=== PATIENT | female | born 1950 | race Caucasian/White ===

== ENCOUNTER 2017-01-02 14:20 | Emergency (ER) | payer OTHER, MEDICAID ==
--- NOTE | 2017-01-02 14:55 | EDPHY ---
H & P Stated Complaint: Thinks her BP is low;feels weak since 11am;similiar episode in past HPI/ROS: HPI CHIEF COMPLAINT: Generalized weakness, I feel like I am off balance, lightheadedness HISTORY OF PRESENT ILLNESS: This patient is 66-year-old female significant past medical history for chronic fatigue syndrome, Sjogren's, TIA, presents to the emergency room by private vehicle with feeling lightheaded. She tells me that is not a dizziness sensation no vertigo symptoms she just states that she feels that time she is going to pass out. She denies palpitations, denies chest pain, she does endorse shortness of breath she tells me that she feels like she cannot take a full breath in. She states she decided come to the emergency room as she has been feeling very lightheaded and feels as if she was going to pass out since 11:00 a.m. this morning. She tells me she has had this in the past with low blood pressure. She also tells me that it may be due to her exhaustion. She also tells me she has been very stressed recently. Patient reports to me that she lives in [employer] housing anger having a inspection she has been very stressed about this. She denies neck pain, chest pain or fever recent illness. She also endorses a rash to the right posterior truncal area. She also additionally reports to me that at times when she goes to walk she feels off balance. She tells me it is not 1 direction or the other. She tells me that she feels like she has to hold onto eisenberg at times. Past Medical History: Sjogren's disease, chronic fatigue syndrome, PTSD, anxiety, IBS Past Surgical History: Appendectomy, tubal ligation Social History: Denies daily use drugs alcohol tobacco products, lives locally in [place] Family History: Noncontributory ROS REVIEW OF SYSTEMS: A comprehensive 10 point review of systems is otherwise negative aside from elements mentioned in the history of present illness. Exam Constitutional appears well nontoxic, triage nursing summary reviewed, vital signs reviewed, awake/alert. Vital signs reviewed blood pressure stable. Eyes normal conjunctivae and sclera, EOMI, PERRLA. HENT normal inspection, atraumatic, moist mucus membranes, no epistaxis, neck supple/ no meningismus, no raccoon eyes. Respiratory clear to auscultation bilaterally, normal breath sounds, no respiratory distress, no wheezing. Cardiovascular rate normal, regular rhythm, no murmur, no edema, distal pulses normal. Gastrointestinal soft, non-tender, no rebound, no guarding, normal bowel sounds, no distension, no pulsatile mass. Genitourinary no CVA tenderness. Musculoskeletal no midline vertebral tenderness, full range of motion, no calf swelling, no tenderness of extremities, no meningismus, good pulses, neurovascularly intact. Skin Right Posterior trunk: Vesicular looking rash to the right posterior chest wall. Appears to be shingles. Neurologic no focal neuro deficit normal neurological exam, awake, alert and oriented x 3, AAOx3, moves all 4 extremities equally, motor intact, sensory intact, CN II-XII intact, normal cerebellar, normal vision, normal speech. Psychiatric normal mood/affect. Heme/Lymph/Immune no lymphadenopathy. Differential Diagnosis: Includes but is not limited to in a particular order electrolyte disturbance, infection, dehydration, cardiac arrhythmia, doubt acute coronary syndrome, doubt pulmonary embolism, TIA, CVA Medical Decision Making: Plan for this patient IV establishment, EKG, fluid bolus check basic blood work including electrolytes, troponin and D-dimer. Patient had a two view chest x-ray. Due to her feeling of off balance however she has a completely normal neurological exam here I will perform a CT of her head without contrast to make sure she does not have a bleed versus infarct which I think is unlikely given her normal neurological exam. We will re- evaluate her after IV fluids. Re-evaluation: EKG interpretation by me on record in [facility] system. Impression time of EKG 1522, this is sinus rhythm rate of 72 I do not appreciate acute ischemic changes or signs of cardiac arrhythmia. CT scan of the head w/o contrast. The results of the study are negative for anything acute. Specifically no bleed or infarct. The study was read by Dr. Weiss. I viewed the images myself on the PACS system. The ED x-ray chest two view: Negative for acute cardiopulmonary disease. Image interpreted by myself. 1624: Patient on re-evaluation at this time is resting comfortably in no acute distress. She does feel better after IV fluids. She did ambulate well throughout the emergency room without any ataxia or gait instability. She denies feeling chest pain or shortness of breath or dizziness or lightheadedness. Denies feeling as if she is going to pass out. Her workup here in the emergency room is extensive including a normal CT scan head without contrast, normal x-ray blood work including negative D-dimer negative troponin nonischemic EKG. No signs of cardiac arrhythmia on EKG. Patient tells me she thinks she is just very exhausted and tired. She has been sleeping here in the emergency room. She got IV fluids and is feeling better. No indication this patient is having ACS or acute stroke. Gait normal. Unremarkable neuro exam. No chest pain or shortness of breath. I feel comfortable allowing her to go home. She does understand return precautions emergency room this includes if she develops chest pain, shortness of breath worsening lightheadedness or syncope or dizziness she return emergency room she understands. Of note additional patient has shingles right posterior trunk should be placed on a acyclovir outpatient. Follow up with primary care doctor she understands. Source: Patient - Personal History Current Tetanus Diphtheria and Acellular Pertussis (TDAP): Yes Tetanus Vaccine Date: < 10 YEARS - Medical/Surgical History Hx Asthma: No Hx Chronic Respiratory Disease: No Hx Diabetes: No Hx Cardiac Disease: No Hx Renal Disease: No Hx Cirrhosis: No Hx Alcoholism: No Hx HIV/AIDS: No Hx Splenectomy or Spleen Trauma: No Other PMH: APPY, TUBAL LIG, UTERINE CA, CHRONIC FATIGUE, PTSD, ANXIETY, SLEEP ISSUES,IBS,, hysterectomy - Social History Smoking Status: Former smoker Constitutional: Initial Vital Signs Temperature (C) 36.5 C 01/02/17 14:20 Heart Rate 77 01/02/17 14:20 Respiratory Rate 18 01/02/17 14:20 Blood Pressure 121/82 H 01/02/17 14:20 O2 Sat (%) 96 01/02/17 14:20 O2 Delivery Mode Room Air Allergies/Adverse Reactions: Penicillins Allergy (Severe, Verified 01/02/17 14:25) SWELLING epinephrine Allergy (Verified 01/02/17 14:25) latex Allergy (Verified 01/02/17 14:25) venom-honey bee [bee venom (honey bee)] Allergy (Verified 01/02/17 14:25) EPI Allergy (Unknown, Uncoded 03/07/15 06:28) Home Medications: Medication Instructions Recorded Acyclovir 01/15/10 PARoxetine HCL [Paxil 10mg (*)] 01/15/10 Acyclovir 800 mg PO 5XD #35 tab 01/02/17 Medical Decision Making - Diagnostics Imaging Results: Imaging Impressions Chest X-Ray 01/02/17 15:13 Impression: Stable negative chest. Head CT 01/02/17 15:13 Impression: 1. No significant intracranial abnormality seen. Findings discussed with Sincere Sanon MD at 15:52 hour, 01/02/2017. - Data Points Laboratory Results: Laboratory Results 01/02/17 15:10 01/02/17 15:10 01/02/17 01/02/17 01/02/17 15:46 15:10 15:10 WBC RBC Hgb Hct MCV MCH MCHC RDW Plt Count MPV Neut % (Auto) Lymph % (Auto) [place] % (Auto) Eos % (Auto) Baso % (Auto) Nucleat RBC Rel Count Absolute Neuts (auto) Absolute Lymphs (auto) Absolute Monos (auto) Absolute Eos (auto) Absolute Basos (auto) Absolute Nucleated RBC Immature Gran % Immature Gran # PT 12.2 SEC SEC (12.0-15.0) INR 0.91 (0.83-1.16) APTT 26.4 SEC SEC (23.0-38.0) D-Dimer < 0.27 ug/mLFEU ug/mLFEU (0.00-0.50) Sodium 142 mEq/L mEq/L (134-144) Potassium 4.0 mEq/L mEq/L (3.5-5.2) Chloride 102 mEq/L mEq/L (97-110) Carbon Dioxide 28 mEq/l mEq/l (22-31) Anion Gap 12 mEq/L mEq/L (8-16) BUN 23 mg/dL mg/dL (7-23) Creatinine 1.0 mg/dL mg/dL (0.6-1.0) Estimated GFR 55 Glucose 66 mg/dL L mg/dL (70-100) Calcium 9.8 mg/dL mg/dL (8.5-10.4) Magnesium 2.3 mg/dL mg/dL (1.6-2.3) Total Bilirubin 1.4 mg/dL mg/dL (0.1-1.4) Conjugated Bilirubin 0.2 mg/dL mg/dL (0.0-0.5) Unconjugated Bilirubin 1.2 mg/dL H mg/dL (0.0-1.1) AST 29 IU/L IU/L (14-46) ALT 27 IU/L IU/L (9-52) Alkaline Phosphatase 91 IU/L IU/L (38-126) Creatine Kinase 46 IU/L IU/L (0-156) CK-MB (CK-2) Fraction 1.54 ng/mL ng/mL (0-3.19) Troponin I < 0.012 ng/mL ng/mL (0-0.034) NT-Pro-B Natriuret Pep 75 pg/mL pg/mL (0-125) Total Protein 8.5 g/dL H g/dL (6.3-8.2) Albumin 4.8 g/dL g/dL (3.5-5.0) Urine Color YELLOW Urine Appearance CLEAR Urine pH 8.0 H (5.0-7.5) Ur Specific [place] 1.011 (1.002-1.030) Urine Protein NEGATIVE (NEGATIVE) Urine Ketones NEGATIVE (NEGATIVE) Urine Blood NEGATIVE (NEGATIVE) Urine Nitrate NEGATIVE (NEGATIVE) Urine Bilirubin NEGATIVE (NEGATIVE) Urine Urobilinogen NEGATIVE EU EU (0.2-1.0) Ur Leukocyte Esterase NEGATIVE (NEGATIVE) Urine Glucose NEGATIVE (NEGATIVE) 01/02/17 15:10 WBC 6.64 10^3/uL 10^3/uL (3.80-9.50) RBC 4.90 10^6/uL 10^6/uL (4.18-5.33) Hgb 14.9 g/dL g/dL (12.6-16.3) Hct 45.4 % % (38.0-47.0) MCV 92.7 fL fL (81.5-99.8) MCH 30.4 pg pg (27.9-34.1) MCHC 32.8 g/dL g/dL (32.4-36.7) RDW 13.4 % % (11.5-15.2) Plt Count 277 10^3/uL 10^3/uL (150-400) MPV 10.1 fL fL (8.7-11.7) Neut % (Auto) 68.5 % % (39.3-74.2) Lymph % (Auto) 18.5 % % (15.0-45.0) Brown % (Auto) 9.5 % % (4.5-13.0) Eos % (Auto) 1.7 % % (0.6-7.6) Baso % (Auto) 1.5 % % (0.3-1.7) Nucleat RBC Rel Count 0.0 % % (0.0-0.2) Absolute Neuts (auto) 4.55 10^3/uL 10^3/uL (1.70-6.50) Absolute Lymphs (auto) 1.23 10^3/uL 10^3/uL (1.00-3.00) Absolute Monos (auto) 0.63 10^3/uL 10^3/uL (0.30-0.80) Absolute Eos (auto) 0.11 10^3/uL 10^3/uL (0.03-0.40) Absolute Basos (auto) 0.10 10^3/uL 10^3/uL (0.02-0.10) Absolute Nucleated RBC 0.00 10^3/uL 10^3/uL (0-0.01) Immature Gran % 0.3 % % (0.0-1.1) Immature Gran # 0.02 10^3/uL 10^3/uL (0.00-0.10) PT INR APTT D-Dimer Sodium Potassium Chloride Carbon Dioxide Anion Gap BUN Creatinine Estimated GFR Glucose Calcium Magnesium Total Bilirubin Conjugated Bilirubin Unconjugated Bilirubin AST ALT Alkaline Phosphatase Creatine Kinase CK-MB (CK-2) Fraction Troponin I NT-Pro-B Natriuret Pep Total Protein Albumin Urine Color Urine Appearance Urine pH Ur Specific [place] Urine Protein Urine Ketones Urine Blood Urine Nitrate Urine Bilirubin Urine Urobilinogen Ur Leukocyte Esterase Urine Glucose Medications Given: Discontinued Medications Sodium Chloride (Ns) 1,000 mls @ 0 mls/hr IV ONCE ONE PRN Reason: Wide Open Stop: 01/02/17 15:13 Last Admin: 01/02/17 15:15 Dose: 1,000 mls Departure - Departure Disposition: Home, Routine, Self-Care Clinical Impression: Lightheadedness Shingles Qualifiers: Herpes zoster complications: without complications Qualified Code(s): B02.9 - Zoster without complications Condition: Good Instructions: Lightheadedness (ED), Near Syncope (ED), Shingles (ED) Additional Instructions: 1. Drink lots of fluids stay well-hydrated. 2. return emergency room immediately if he developed passing out or you do not feel well or if you have any questions or concerns. Referrals: Cassandra Dobson MD [Primary Care Provider] - As per Instructions Prescriptions: Acyclovir 800 mg PO 5XD #35 tab
[2017-01-02] MEDS ORDERED: NS 1,000 ML IV ONE (15:12)
[2017-01-02 15:19] LABS: % IMMATURE GRANULYOCYTES 0.3 % (0.0-1.1); ABSOLUTE IMMATURE GRANULOCYTES 0.02 10^3/uL (0.00-0.10); ADD DIFF? NO; ADD MORPH? NO; ADD SCAN? NO; ATYPICAL LYMPHOCYTE FLAG 20 (0-99); FRAGMENT RBC FLAG 0 (0-99); HEMATOCRIT 45.4 % (38.0-47.0); HEMOGLOBIN 14.9 g/dL (12.6-16.3); LEFT SHIFT FLG 0 (0-99); LIPEMIA HEMOLYSIS FLAG 80 (0-99); MEAN CELL HEMOGLOBIN 30.4 pg (27.9-34.1); MEAN CELL HEMOGLOBIN CONCENTR. 32.8 g/dL (32.4-36.7); MEAN CELL VOLUME 92.7 fL (81.5-99.8); MEAN PLATELET VOLUME 10.1 fL (8.7-11.7); PLATELET CLUMPS FLAG 0 (0-99); PLATELET COUNT 277 10^3/uL (150-400); RED CELL DISTRIBUTION WIDTH 13.4 % (11.5-15.2)
--- NOTE | 2017-01-02 15:24 | CPEKG ---
Heart Rate: 72 RR Interval: 833 P-R Interval: 180 QRSD Interval: 80 QT Interval: 384 QTC Interval: 421 P [place]: 76 QRS [place]: 82 T Wave [place]: 65 EKG Severity - OTHERWISE NORMAL ECG - EKG Impression: SINUS RHYTHM EKG Impression: BORDERLINE RIGHT AXIS DEVIATION Electronically Signed By: Sincere Sanon 02-Jan-2017 23:54:37
[2017-01-02 15:32] LABS: INR 0.91 (0.83-1.16); PROTIME(PATIENT) 12.2 SEC (12.0-15.0)
[2017-01-02 15:33] LABS: APTT 26.4 SEC (23.0-38.0)
[2017-01-02 15:45] LABS: ALANINE AMINOTRANSFERASE 27 IU/L (9-52); ALBUMIN 4.8 g/dL (3.5-5.0); ALKALINE PHOSPHATASE 91 IU/L (38-126); ANION GAP 12 mEq/L (8-16); ASPARTATE AMINOTRANSFERASE 29 IU/L (14-46); BILIRUBIN,TOTAL 1.4 mg/dL (0.1-1.4); BILIRUBIN-CONJUGATED 0.2 mg/dL (0.0-0.5); BILIRUBIN-UNCONJUGATED 1.2 mg/dL (0.0-1.1); CALCIUM 9.8 mg/dL (8.5-10.4); CARBON DIOXIDE 28 mEq/l (22-31); CHLORIDE 102 mEq/L (97-110); GLOMERULAR FILTRATION RATE 55; GLUCOSE 66 mg/dL (70-100); MAGNESIUM 2.3 mg/dL (1.6-2.3); SODIUM 142 mEq/L (134-144); TOTAL PROTEIN 8.5 g/dL (6.3-8.2)
[2017-01-02 15:57] LABS: CREATINE KINASE-MB FRACTION 1.54 ng/mL (0-3.19); TROPONIN I < 0.012 ng/mL (0-0.034)
[2017-01-02 16:00] LABS: COLOR YELLOW; LEUKOCYTE ESTERASE,URINE NEGATIVE (NEGATIVE); NITRITE,URINE NEGATIVE (NEGATIVE)
[2017-01-02 16:03] VITALS: O2SAT 97
[2017-01-02 16:49] VITALS: BP 149/92; PULSE 81; RESP 14; TEMP 97.7
== END 2017-01-02 16:49 | disposition home or self-care (01) ==
DX: R42 Dizziness and giddiness (principal); B02.9 Zoster without complications; Z85.41 Personal history of malignant neoplasm of cervix uteri; Z87.891 Personal history of nicotine dependence; Z91.040 Latex allergy status

== ENCOUNTER → 2017-01-25 | Outpatient (CLI) | payer OTHER, MEDICAID | LOC: FIMAGING 14:42 | PROVIDERS: ATTEND Family Medicine | DX: Z12.31 Encounter for screening mammogram for malignant neoplasm of breast (principal) | CPT/HCPCS: G0202 ==

== ENCOUNTER 2017-02-07 10:30 | Emergency (ER) | payer OTHER, MEDICAID ==
--- NOTE | 2017-02-07 10:47 | EDPHY ---
H & P Smoking Status: Former smoker Time Seen by Provider: 02/07/17 10:41 HPI/ROS: CHIEF COMPLAINT: Right foot pain HISTORY OF PRESENT ILLNESS: 66-year-old female arrives via private vehicle complaining of right dorsal foot pain after she dropped a heavy bottle onto her foot this morning. It was made of plastic there is no break in skin. She is able to bear weight only on the lateral aspect of the foot. Denies other injury. This was accidental. PRIMARY CARE PROVIDER: REVIEW OF SYSTEMS: A ten point review of systems was performed and is negative with the exception of the items mentioned in the HPI PHYSICAL EXAM (Prior to examination, patient consented to physical exam, hands were washed and my usual and customary physical exam procedures followed) 1) GENERAL: Well-developed, well-nourished, alert and oriented. 2) HEAD: Normocephalic 3) HEENT: Pupils equal, round, reactive to light bilaterally. 4) LUNGS: Breathing comfortably. 5) MUSCULOSKELETAL: Patient is tender to palpation dorsal midfoot. No ecchymosis. Soft compartments. Ankle nontender. proximal tibia and fibula nontender .5th MT nontender negative Kelley test, compartments soft 6) SKIN: Intact 7) VASCULAR: DP,PT pulses and cap refill present and brisk DIFFERENTIAL DIAGNOSIS: in no particular order including but not limited to fracture, sprain, compartment syndrome Procedure: Crutches indications for crutch use discussed with patient. Patient fitted for crutches by ER staff. Observed ambulating with crutches. I think the patient has the capacity to safely use crutches. Usual and customary crutch walking precautions provided Procedure: Splint A postop shoe splint was applied by ER media technician. After application of the splint I returned and re-examined the patient. The splint was adequately immobilizing the joint and distal to the splint the patient's circulation and sensation were intact. Patient shows no signs of compartment syndrome. Was given orthopedic precautions. (Dougie Rincon) Constitutional: Initial Vital Signs Temperature (C) 36.5 C 02/07/17 10:34 Heart Rate 84 02/07/17 10:34 Respiratory Rate 16 02/07/17 10:34 Blood Pressure 138/78 H 02/07/17 10:34 O2 Sat (%) 99 02/07/17 10:34 O2 Delivery Mode Room Air Allergies/Adverse Reactions: Penicillins Allergy (Severe, Verified 01/02/17 14:25) SWELLING epinephrine Allergy (Verified 01/02/17 14:25) latex Allergy (Verified 01/02/17 14:25) venom-honey bee [bee venom (honey bee)] Allergy (Verified 01/02/17 14:25) EPI Allergy (Unknown, Uncoded 03/07/15 06:28) Home Medications: Medication Instructions Recorded Acyclovir 01/15/10 PARoxetine HCL [Paxil 10mg (*)] 01/15/10 Acyclovir 800 mg PO 5XD #35 tab 01/02/17 Hydrocodone/APAP 5/325 [[employer] 1 tab PO Q6 PRN #7 tab 02/07/17 5/325 (RX)] MDM/Departure - MDM Imaging Results: Imaging Impressions Foot X-Ray 02/07/17 10:38 Impression: 1. Bone demineralization, with no acute osseous anatomy. 2. 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 Images reviewed by myself (Dougie Rincon) Medications Given: Discontinued Medications Hydrocodone Bitart/Acetaminophen ([employer] 5/325) 1 tab PO EDNOW ONE Stop: 02/07/17 11:36 Last Admin: 02/07/17 11:50 Dose: 1 tab ED Course/Re-evaluation: I did not see this patient while she was in the emergency department. However her care was discussed with PA while the patient was in the department. I agree with treatment plan and management (Julio Cesar Lopez) - Depart Disposition: Home, Routine, Self-Care Clinical Impression: Right foot sprain Qualifiers: Encounter type: initial encounter Qualified Code(s): S93.601A - Unspecified sprain of right foot, initial encounter Condition: Good Instructions: Foot Sprain (ED) Additional Instructions: Return to the ER immediately if you experience discoloration, have worsening pain, numbness, tingling, or any other symptoms that concern you. If you received x-rays in the emergency department today, be advised, that ligamentous , tendon, muscular, and other non-bony injury cannot be fully ruled out. Try to keep your affected extremity elevated above the level of your chest, and keep cold packs on the affected area, for the next 48 hours. Prescriptions: Hydrocodone/APAP 5/325 [[employer] 5/325 (RX)] 1 tab PO Q6 PRN #7 tab PRN Reason: Pain, Severe Referrals: Kaveh Kate DPM [Doctor of Podiatric Medicine] - 1-2 days without fail
[2017-02-07] MEDS ORDERED: HYDROCODONE/APAP 5/325 TAB PO ONE (11:35)
[2017-02-07 12:14] VITALS: BP 121/72; PULSE 73; RESP 15; TEMP 98.8; O2SAT 97
== END 2017-02-07 12:14 | disposition home or self-care (01) ==
DX: S93.601A Unspecified sprain of right foot, initial encounter (principal); Z87.891 Personal history of nicotine dependence; W20.8XXA Other cause of strike by thrown, projected or falling object, initial encounter
CPT/HCPCS: 73630; 99283; L3260

== ENCOUNTER → 2017-04-25 | Outpatient (CLI) | payer OTHER, MEDICAID | LOC: FIMAGING 15:05 | PROVIDERS: ATTEND Family Medicine | DX: R92.0 Mammographic microcalcification found on diagnostic imaging of breast (principal) | CPT/HCPCS: G0206 ==

== ENCOUNTER → 2017-05-03 | Outpatient (CLI) | payer OTHER, MEDICAID | LOC: FIMAGING 14:39 | PROVIDERS: ATTEND Family Medicine | DX: M81.0 Age-related osteoporosis without current pathological fracture (principal) ==

== ENCOUNTER 2017-09-24 21:26 | Observation (INO) | payer OTHER, MEDICAID ==
[2017-09-24 21:37] LABS: PLATELET COUNT 229 10^3/uL (150-400)
--- NOTE | 2017-09-24 21:37 | CPEKG ---
Heart Rate: 70 RR Interval: 857 P-R Interval: 184 QRSD Interval: 80 QT Interval: 388 QTC Interval: 419 P [place]: 69 QRS [place]: 77 T Wave [place]: 67 EKG Severity - NORMAL ECG - EKG Impression: SINUS RHYTHM Electronically Signed By: Kolby Francisco 24-Sep-2017 21:48:32
[2017-09-24] MEDS ORDERED: NITROGLYCERIN 0.4 MG BTL SL PRN ×2 (21:45→22:16)
--- NOTE | 2017-09-24 21:48 | EDPHY ---
H & P Time Seen by Provider: 09/24/17 21:28 HPI/ROS: CHIEF COMPLAINT: Chest pain HISTORY OF PRESENT ILLNESS: Patient took a nap and woke up and was eating some butternut squash soup which a neighbor head brought for her when she developed sharp pain under her left breast radiating to her jaw with diaphoresis and nausea. She took 3 baby aspirin and EMS arrived and gave her 1 more. It was initially 8/10 is now 2/10 in severity. Not really pleuritic or exertional. Not associated with coughing or leg swelling or any trauma. REVIEW OF SYSTEMS: Eye: no change in vision ENT: no sore throat Cardiac: HPI Pulmonary: No cough or hemoptysis Abdomen: no vomiting, diarrhea, abdominal pain Musculoskeletal: No leg swelling Skin: no rash Neuro: no headache Constitutional: no fever but very fatigued x 3 months, worse x 3 days. : no urinary symptoms A comprehensive 10 point review of systems is otherwise negative aside from elements mentioned in the history of present illness. She has been under a lot of extra stress including problems with management at her residence. PAST MEDICAL HISTORY: Sjogren's, hypoglycemia, TIA Family history: Father had vascular disease with extremity bypass in the legs in his 40s Social history: Nonsmoker General Appearance: Alert and conversant, cooperative. Eyes: No scleral icterus. ENT, Mouth: Normal mucous membranes. Respiratory: Normal respiratory effort, breath sounds equal, lungs are clear to auscultation. Cardiovascular: Regular rate and rhythm. Gastrointestinal: Abdomen is soft and non tender. Neurological: Alert, face symmetric, normal motor and sensory in extremities. Skin: Warm and dry, no rashes. No zoster. Musculoskeletal: No peripheral edema. No calf tenderness. Psychiat cali: Not agitated. Emergency Department course/MDM: Patient is already received aspirin and her pain decreased from 8-2. Nitroglycerin sublingual, chest x-ray D-dimer and troponin. Initial EKG is normal. Very concerning story combination for risk stratification serial troponins, known vascular disease with history of TIA. HEART score 6 before troponin resulted, at least moderate risk. 2210: Discussed with Dr. Hernandez, D-dimer 0.55 which is less than point 1 times age, negative with a low pretest probability for pulmonary embolism. 2215: Feels better after nitroglycerin, discussed admission for further risk stratification. Smoking Status: Former smoker Constitutional: Initial Vital Signs Temperature (C) 36.8 C 09/24/17 21:32 Heart Rate 72 09/24/17 21:32 Respiratory Rate 18 09/24/17 21:32 Blood Pressure 136/96 H 09/24/17 21:32 O2 Sat (%) 100 09/24/17 21:32 O2 Delivery Mode Room Air Allergies/Adverse Reactions: Penicillins Allergy (Severe, Verified 09/24/17 21:42) SWELLING epinephrine Allergy (Verified 09/24/17 21:42) latex Allergy (Verified 09/24/17 21:42) venom-honey bee [bee venom (honey bee)] Allergy (Verified 09/24/17 21:42) EPI Allergy (Unknown, Uncoded 03/07/15 06:28) Home Medications: Medication Instructions Recorded PARoxetine HCL [Paxil 10mg (*)] 01/15/10 Acyclovir 800 mg PO 5XD #35 tab 01/02/17 Restasis Opht Drops(*) 09/24/17 Medical Decision Making - Diagnostics EKG Interpretation: 12-lead EKG interpreted by me; official reading is in trace master. My interpretation is sinus rhythm rate 70 no ischemic changes. Imaging Results: Imaging Impressions Chest X-Ray 09/24/17 21:31 Impression: Stable chest with no acute findings. Chest x-ray negative Imaging: I viewed and interpreted images myself Differential Diagnosis: Differential diagnosis considered for chest pain including but not limited to myocardial ischemia, aortic dissection, pericarditis, pulmonary embolus, chest wall pain, pleural inflammation and pulmonary infectious causes. - Data Points Laboratory Results: Laboratory Results 09/24/17 21:25 09/24/17 21:25 09/24/17 09/24/17 09/24/17 21:30 21:25 21:25 WBC 4.68 10^3/uL 10^3/uL (3.80-9.50) RBC 4.92 10^6/uL 10^6/uL (4.18-5.33) Hgb 15.5 g/dL g/dL (12.6-16.3) Hct 44.9 % % (38.0-47.0) MCV 91.3 fL fL (81.5-99.8) MCH 31.5 pg pg (27.9-34.1) MCHC 34.5 g/dL g/dL (32.4-36.7) RDW 12.6 % % (11.5-15.2) Plt Count 229 10^3/uL 10^3/uL (150-400) MPV 10.1 fL fL (8.7-11.7) Neut % (Auto) 50.8 % % (39.3-74.2) Lymph % (Auto) 35.9 % % (15.0-45.0) [place] % (Auto) 10.3 % % (4.5-13.0) Eos % (Auto) 1.5 % % (0.6-7.6) Baso % (Auto) 1.3 % % (0.3-1.7) Nucleat RBC Rel Count 0.0 % % (0.0-0.2) Absolute Neuts (auto) 2.38 10^3/uL 10^3/uL (1.70-6.50) Absolute Lymphs (auto) 1.68 10^3/uL 10^3/uL (1.00-3.00) Absolute Monos (auto) 0.48 10^3/uL 10^3/uL (0.30-0.80) Absolute Eos (auto) 0.07 10^3/uL 10^3/uL (0.03-0.40) Absolute Basos (auto) 0.06 10^3/uL 10^3/uL (0.02-0.10) Absolute Nucleated RBC 0.00 10^3/uL 10^3/uL (0-0.01) Immature Gran % 0.2 % % (0.0-1.1) Immature Gran # 0.01 10^3/uL 10^3/uL (0.00-0.10) D-Dimer 0.55 ug/mLFEU H ug/mLFEU (0.00-0.50) Sodium 144 mEq/L mEq/L (135-145) Potassium 4.1 mEq/L mEq/L (3.5-5.2) Chloride 103 mEq/L mEq/L (97-110) Carbon Dioxide 27 mEq/l mEq/l (22-31) Anion Gap 14 mEq/L mEq/L (8-16) BUN 20 mg/dL mg/dL (7-23) Creatinine 0.9 mg/dL mg/dL (0.6-1.0) Estimated GFR > 60 Glucose 73 mg/dL mg/dL (70-100) Calcium 10.2 mg/dL mg/dL (8.5-10.4) Troponin I < 0.012 ng/mL ng/mL (0.000-0.034) Medications Given: Nitroglycerin (Nitrostat) 0.4 mg SL Q5M PRN PRN Reason: Chest Pain Last Admin: 09/24/17 22:00 Dose: 0.4 mg Departure - Departure Disposition: [facility] Inpatient Acute Clinical Impression: Chest pain Qualifiers: Chest pain type: unspecified Qualified Code(s): R07.9 - Chest pain, unspecified Condition: Good
[2017-09-24] MEDS ORDERED: HYDROCODONE/APAP 5/325 TAB PO PRN (22:12)
[2017-09-24] MEDS ORDERED: ONDANSETRON 4 MG/2 ML VIAL IVP PRN (22:12)
[2017-09-24] MEDS ORDERED: ACETAMINOPHEN 325 MG TAB PO PRN (22:12)
[2017-09-24] MEDS ORDERED: NS 1,000 ML IV SCH (22:15)
[2017-09-25 04:53] LABS: CREATINE KINASE 28 IU/L (0-156)
[2017-09-25] MEDS ORDERED: D50W 25 GM/50 ML SYR IVP PRN (06:43)
--- NOTE | 2017-09-25 06:50 | PDGENHP ---
History and Physical - Chief Complaint chest pain - History of Present Illness DOS-09/25/2017 Source - patient provides history appears reliable. EMR reviewed and case discussed with ED provider. HPI - 67-year-old female with past medical history significant for Sjogren's TST anxiety remote history of TIA FLAQUITA and fibromyalgia who presents emergency department today with sudden onset of left-sided chest pain below her breast. Patient reports that she was at rest at time of onset. Pain began to radiate to the episode but across the right side of the chest. She reported some tightness in her lower left lower job but no radiation to her arm or into her neck. Patient still states that she does have a history of increased stressors at home on as she is in advised senior care apartment she is struggling to handle multiple neighbors and various directions. Patient reports that her pain did seem to improve with application of pressure to palpation to her left chest. She has had ongoing daily nausea some with waking. Patient also is concerned that she may have exacerbated her fibromyalgia and is under increasing stress also due to issues with insomnia and poor sleep patterns. Patient never experienced the chest tightness before with her exacerbation of symptoms otherwise they do appear to be similar. She has no family history of coronary artery disease or sudden early cardiac. It father did have a history of pleural vascular disease requiring bypass but no coronary artery disease. Patient without any previous issues with chest pain on exertion she does have decreased stamina with stairs but otherwise is able to complete all her ADLs. History Information - Allergies/Home Medication List Allergies/Adverse Reactions: Penicillins Allergy (Severe, Verified 09/24/17 21:42) SWELLING epinephrine Allergy (Verified 09/24/17 21:42) latex Allergy (Verified 09/24/17 21:42) venom-honey bee [bee venom (honey bee)] Allergy (Verified 09/24/17 21:42) EPI Allergy (Unknown, Uncoded 03/07/15 06:28) Home Medications: PARoxetine HCL [Paxil 10mg (*)] 01/15/10 [Last Taken 01/14/10] Restasis Opht Drops(*) 09/24/17 [Last Taken Unknown] I have personally reviewed and updated: family history, medical history, social history, surgical history - Past Medical History Additional medical history: Sjogren, TIA, PTSD/anxiety, hypoglycemia, FLAQUITA on CPAP, fibromyalgia - Surgical History Additional surgical history: Appendectomy - Family History Additional family history: Father with PVD, mother with HTN - Social History Smoking Status: Former smoker Alcohol Use: None Drug Use: None Additional social history: Patient lives alone in subsidized senior housing in an apartment. Good support from friends nearby. Course status is full. Review of Systems Review of Systems: ROS: 10pt was reviewed & negative except for what was stated in HPI & below Constitutional: Reports: other (occasional night sweats). Denies: chills, fever , recent illness, weight loss EENMT: Reports: other (glasses, dry mouth). Denies: double vision, nose congestion, sore throat Cardiac: Reports: chest pain, palpitations. Denies: edema, lightheadedness Respiratory: Reports: no symptoms. Denies: shortness of breath Gastrointestinal: Reports: nausea. Denies: black stools, rectal bleeding, abdominal pain, diarrhea Genitourinary: Denies: dysuria, hematuria Muscolosketal: Reports: no symptoms Skin: Reports: no symptoms Neurological: Reports: anxiety, depressed, emotional problems (PTSD), other ( aura x 1. ). Denies: numbness, tingling Hematologic/Lymphatic: Denies: anemia Immunologic/Allergy: Reports: no symptoms Physical Exam Physical Exam: Selected Entries 09/24/17 09/24/17 09/24/17 21:32 22:54 23:52 Blood Pressure Automatic Method Heart Rate 72 72 Respiratory 18 16 Rate O2 Sat (%) 100 99 Temperature (C) 36.8 C 36.9 C Blood Pressure 136/96 H 105/69 Mean Arterial 109 H 81 Pressure (MAP) Activity During At Rest Vital Signs O2 Delivery Room Air Room Air Mode Temperature Oral Oral Source Cardiac Rhythm Normal Sinus Rhythm DE Interval 0.17 QRS Interval 0.[address] Segment No Change Review of Yes Continuous Monitoring Alarm History Alarm Yes Parameters Assessed Constitutional: no apparent distress, not in pain, other (NAD. Pleasant thin adult female is sitting up in bed. Anxious.) Eyes: PERRL, anicteric sclera, EOMI Ears, Nose, Mouth, Throat: dry mucous membranes, other (No nasal discharge), No poor dentition Cardiovascular: regular rate and rhythym, no murmur, rub, or gallop, No edema Peripheral Pulses: 1+: dorsalis-pedis (R), dorsalis-pedis (L) Respiratory: no respiratory distress, no rales or rhonchi, clear to auscultation Gastrointestinal: normoactive bowel sounds, soft, non-tender abdomen, no palpable masses, No rebound, No distension Genitourinary: no bladder tenderness, No cordoba in urethra Skin: warm, no rashes or abrasions, no fluctuance, other (Pallor) Musculoskeletal: full muscle strength, No pain with ROM, No generalized weakness Neurologic: AAOx3, sensation intact bilaterally, weakness, CN II-XII Intact, No numbness, No facial droop Psychiatric: interacting appropriately, thought process linear (Slightly tangential but redirectable.), anxious, depressed, No suicidal ideation Lab Data & Imaging Review 09/24/17 21:25 09/24/17 21: WBC 4.68 10^3/uL (3.80-9.50) 09/24/17 21: RBC 4.92 10^6/uL (4.18-5.33) 09/24/17 21: Hgb 15.5 g/dL (12.6-16.3) 09/24/17 21: Hct 44.9 % (38.0-47.0) 09/24/17 21: MCV 91.3 fL (81.5-99.8) 09/24/17 21: MCH 31.5 pg (27.9-34.1) 09/24/17 21: MCHC 34.5 g/dL (32.4-36.7) 09/24/17: RDW 12.6 % (11.5-15.2) 09/24/17 21: Plt Count 229 10^3/uL (150-400) 09/24/17 21: MPV 10.1 fL (8.7-11.7) 09/24/17: Neut % (Auto) 50.8 % (39.3-74.2) 09/24/17: Lymph % (Auto) 35.9 % (15.0-45.0) 09/24/17 21: [place] % (Auto) 10.3 % (4.5-13.0) 09/24/17: Eos % (Auto) 1.5 % (0.6-7.6) 09/24/17 21:25 Baso % (Auto) 1.3 % (0.3-1.7) 09/24/17 21:25 Nucleat RBC Rel Count 0.0 % (0.0-0.2) 09/24/17 21:25 Absolute Neuts (auto) 2.38 10^3/uL (1.70-6.50) 09/24/17 21:25 Absolute Lymphs (auto) 1.68 10^3/uL (1.00-3.00) 09/24/17 21:25 Absolute Monos (auto) 0.48 10^3/uL (0.30-0.80) 09/24/17: Absolute Eos (auto) 0.07 10^3/uL (0.03-0.40) 09/24/17 21: Absolute Basos (auto) 0.06 10^3/uL (0.02-0.10) 09/24/17: Absolute Nucleated RBC 0.00 10^3/uL (0-0.01) 09/24/17 21: Immature Gran % 0.2 % (0.0-1.1) 09/24/17 21: Immature Gran # 0.01 10^3/uL (0.00-0.10) 09/24/17 21:25 D-Dimer 0.55 ug/mLFEU (0.00-0.50) H 09/24/17 21:30 Sodium 144 mEq/L (135-145) 09/24/17 21:25 Potassium 4.1 mEq/L (3.5-5.2) 09/24/17 21:25 Chloride 103 mEq/L (97-110) 09/24/17 21:25 Carbon Dioxide 27 mEq/l (22-31) 09/24/17 21:25 Anion Gap 14 mEq/L (8-16) 09/24/17 21:25 BUN 20 mg/dL (7-23) 09/24/17 21:25 Creatinine 0.9 mg/dL (0.6-1.0) 09/24/17 21:25 Estimated GFR > 60 09/24/17 21:25 Glucose 73 mg/dL (70-100) 09/24/17 21:25 Calcium 10.2 mg/dL (8.5-10.4) 09/24/17 21:25 Creatine Kinase 28 IU/L (0-156) 09/25/17 04:10 CK-MB (CK-2) Fraction 1.00 ng/mL (0.00-3.19) 09/25/17 04:10 Troponin I < 0.012 ng/mL (0.000-0.034) 09/25/17 04:10 TSH 1.360 uIU/mL (0.465-4.680) 09/24/17 22:00 Imaging Review: PA and Lateral Chest History: Chest Pain. Comparison: PA and lateral chest January 14, 2017, CT chest September 25, 2015. Findings: The lungs are hyperexpanded with mild interstitial prominence, without focal consolidation, pneumothorax, or pleural effusion. Heart size is normal. Degenerative change is present in the spine with mild rightward curvature. Impression: Stable chest with no acute findings. Visualized and Interpreted Chest x-ray results: Yes Visualized and Interpreted EKG results: Yes EKG additional interpertation: NSR 70s, no acute ST changes. QTC 19 Assessment & Plan Assessment: Pleasant 67-year-old female with past medical history significant for Sjogren's , remote TIA, PTSD and anxiety, FLAQUITA on CPAP, fibromyalgia presents with sudden onset of left chest pain #Chest pain (Acute) - patient with complaints of atypical chest pain. Currently resolved. Differential diagnosis including angina versus less likely ACS versus anxiety/fibromyalgia exacerbation versus a spasm or reflux versus less likely PE. Patient did receive nitroglycerin and aspirin the emergency department with resolution of her symptoms. Onset and timing are associated with increased stressors which patient admits to having history of PTSD and significant anxiety. Her heart score however is 3. Reviewed plan to trend cardiac enzymes and if negative consider proceeding with a stress test versus follow up with PCP on outpatient basis. Patient is amenable to proceeding with a cardiac from stress test. Given history of decreasing mobility, anxiety and PTSD who is not likely to be able to complete a treadmill stress test at this time. Patient is amenable to proceed if she rules out. #elevated d-dimer - age adjusted D-dimer is within minutes. Also patient with clinically low suspicion for PE at this time. Will not pursue a CTA at this point was patient develops additional symptoms. #anxiety/PTSD - patient with significant diet and history of PTSD. Ativan available p.r.n. patient reports increasing stressors at her home she is asking for any assistance available. Advised we will consult social work to see if there is any resources available for her. #insomnia - recommendation continue with attempts to sleep hygiene and further discussion with PCP regarding and sleeping agents if she feels this might be needed melatonin offered and patient declined. #Sjogren's - supportive care. #Hypoglycemia - patient was given a meal prior to going to bed will monitor all glucose while NPO. FEN - IV fluids overnight while NPO. Electrolyte monitoring replacement. PPX - SCDs Lovenox patient moderate risk for DVT. COR - full code Dispo - patient admitted observation on PCU floor for close telemetry monitoring pending cardiac evaluation.
[2017-09-25 08:40] VITALS: RESP 18
[2017-09-25] MEDS ORDERED: ENOXAPARIN 40 MG/0.4 ML SYR SC SCH (09:00)
--- NOTE | 2017-09-25 09:49 | CPEKG ---
Heart Rate: 59 RR Interval: 1017 P-R Interval: 188 QRSD Interval: 80 QT Interval: 432 QTC Interval: 428 P Saucier: 83 QRS Saucier: 76 T Wave Saucier: 62 EKG Severity - NORMAL ECG - EKG Impression: SINUS RHYTHM Electronically Signed By: Alexis Kelley 25-Sep-2017 15:31:54
[2017-09-25] MEDS ORDERED: PARoxetine HCL 20 MG TAB PO PRN (12:57)
[2017-09-25] MEDS ORDERED: ACYCLOVIR 400 MG TAB PO SCH (13:00)
[2017-09-25] MEDS ORDERED: REGADENOSON 0.4 MG/5 ML SYR IVP ONE (14:11)
--- NOTE | 2017-09-25 15:50 | ASMTCMCOM ---
CM Note CM Note Notes: Pt admitted with chest pain. Hx PTSD, anxiety, TIA, fibromyalgia. She lives alone in subsidized senior housing with good support from friends. Undergoing cardiac workup. CM will follow for any d/c needs. Date Signed: 09/25/2017 03:50 PM Electronically Signed By:VI Andrews
[2017-09-25] MEDS ORDERED: PARoxetine HCL 10 MG TAB PO SCH (16:00)
[2017-09-25 16:08] VITALS: BP 125/69; PULSE 85; TEMP 98; O2SAT 97
--- NOTE | 2017-09-25 17:35 | HOSPPROG ---
Hospitalist Progress Note Objective: Vital Signs Temp Pulse Resp BP Pulse Ox 36.6 C 85 18 125/69 H 97 09/25/17 16:00 09/25/17 16:00 09/25/17 16:00 09/25/17 16:00 09/25/17 16:00 09/24/17 09/25/17 09/26/17 06:59 06:59 06:59 Intake Total 635 Output Total 150 Balance 485 ICD10 Worksheet Patient Problems: Problems Problem Status Onset Chest pain Acute
--- NOTE | 2017-09-25 17:38 | PDDCSUM ---
Discharge Summary Discharge Summary: DISCHARGE DIAGNOSES: -atypical chest pain, resolved, uncertain etiology -ruled out for myocardial infarction -normal cardiac EKG monitoring -myocardial perfusion imaging with stress showing normal ejection fraction, no wall motion abnormalities, and no perfusion abnormalities HOSPITAL COURSE SUMMARY: This patient presented to the emergency room with chest pain which was largely atypical for cardiac disease but was nonspecific with no defining etiology identified. In terms of cardiac assessment there was no heart failure, normal vital signs, no rhythm or EKG abnormalities and she had repeated normal myocardial enzymes. Her symptoms did not recur. She underwent Lexiscan stress with myocardial perfusion imaging and this showed normal myocardial function and perfusion. Her risk for acute cardiac episodes or development of heart failure is felt to be extremely low and she is stable for discharge from the hospital. Patient was informed of the potential for false negative result regarding potential coronary disease on the stress test that she had, and that there could be other non heart related causes of her pain. She knows that if she has recurring episodes of pain she should follow-up for further assessment either with her primary doctor or if she has more concerning symptoms or problems she can come back to the ER here. PENDING TEST RESULTS: None MEDICATION CHANGES: None FOLLOW-UP PLAN: She will follow up with her primary care physician in 1-2 weeks.
[2017-09-25] MEDS ORDERED: cycloSPORINE 0.05% 30 DROPERETTE/BOX EACHEYE SCH (21:00)
--- NOTE | 2017-09-25 22:35 | CPR ---
[f rep st] NONINVASIVE CARDIAC PROCEDURE REPORT PROCEDURE: Lexiscan injection of Lexiscan myocardial perfusion imaging study. SUPERVISING DEPUTY SHERIFF GENERALIST: Garcia Corley MD. INDICATION FOR PROCEDURE: Chest pressure, evaluation for cardiac ischemia, unable to walk on [place] ll. PRE: After obtaining informed consent and ensuring patient's n.p.o. status of caffeine for greater t gasca 12 hours, patient was placed on electrocardiogram. Initial EKG shows sinus rhythm, normal axis, nonspecific T-wave abnormalities in anterolateral leads. Patient denies chest pain, shortness of stephanie ath, or symptoms suggestive of ischemia. Initial blood pressure 134/90, saturation 99%. INJECTION: Patient was given Lexiscan slow IV push followed by nuclear isotope, within 2 minutes pat ient reported mild shortness of breath, mild midsternal upper chest tightness, heart rate was noted t o increase to 111 beats per minute, blood pressure with mild drop 128/80, saturation 100%. Within 5 minutes post injection, patient reported all symptoms subsided. Again, besides elevated heart rate, no other significant EKG changes noted. Post injection, patient reported all symptoms resolved. Vit al signs are stable. IMPRESSION: 67-year-old female being evaluated for cardiac ischemia, reporting mild chest pressure a nd tightness post Lexiscan injection, resolved within 5 minutes. Noted to be no significant EKG wilcox ges post Lexiscan injection. Her vital signs are stable, she is asymptomatic. She will finish post stress myocardial perfusion imaging in Nuclear Medicine at this time. /[id number]/MODL
== END 2017-09-25 18:51 | disposition home or self-care (01) ==
LOC: EDUNIT# → EDBD → F2W 22:41
PROVIDERS: ADMIT Family Medicine; ATTEND Family Medicine
DX: R07.9 Chest pain, unspecified (principal); Z87.891 Personal history of nicotine dependence
CPT/HCPCS: 71046; 78452; 93005; A9500; G0378; J1650; J2785

== ENCOUNTER → 2017-10-17 | Outpatient (CLI) | payer OTHER, MEDICAID | LOC: GIMAGING 15:30 | PROVIDERS: ATTEND Family Medicine | DX: M51.35 Other intervertebral disc degeneration, thoracolumbar region (principal) | CPT/HCPCS: 72070-PO ==

== ENCOUNTER → 2017-11-03 | Outpatient (CLI) | payer OTHER, MEDICAID | LOC: FIMAGING 14:01 | PROVIDERS: ATTEND Family Medicine | DX: R92.0 Mammographic microcalcification found on diagnostic imaging of breast (principal) ==

== ENCOUNTER → 2018-01-26 | Outpatient (CLI) | payer OTHER, MEDICAID | LOC: FIMAGING 10:41 | PROVIDERS: ATTEND Internal Medicine Gastroenterology | DX: K22.4 Dyskinesia of esophagus (principal); R13.10 Dysphagia, unspecified; R14.0 Abdominal distension (gaseous); R14.2 Eructation ==

== ENCOUNTER → 2018-02-06 | Outpatient (CLI) | payer OTHER, MEDICAID | LOC: FIMAGING 15:30 | PROVIDERS: ATTEND Family Medicine | DX: Z12.31 Encounter for screening mammogram for malignant neoplasm of breast (principal) ==

== ENCOUNTER → 2018-03-08 | Outpatient (CLI) | payer OTHER, MEDICAID ==
[~2018-03-08] MED LIST: IOPAMIDOL (ISOVUE-300) 100 ML BTL ONE
== END ==
LOC: FIMAGING 15:46
PROVIDERS: ATTEND Physician Assistant
DX: K59.00 Constipation, unspecified (principal); K31.9 Disease of stomach and duodenum, unspecified; Z85.42 Personal history of malignant neoplasm of other parts of uterus
CPT/HCPCS: 74177; Q9967

== ENCOUNTER → 2018-04-19 | Outpatient (CLI) | payer OTHER, MEDICAID | LOC: FIMAGING 17:32 → EDSTATUS 17:33 | PROVIDERS: ATTEND Podiatrist Primary Podiatric Medicine | DX: M21.751 Unequal limb length (acquired), right femur (principal); M21.752 Unequal limb length (acquired), left femur; M21.761 Unequal limb length (acquired), right tibia; M21.762 Unequal limb length (acquired), left tibia ==

== ENCOUNTER 2018-11-15 20:05 | Emergency (ER) | payer OTHER, MEDICAID ==
[2018-11-15 20:13] VITALS: BP 121/73
[2018-11-15] MEDS ORDERED: NS 1,000 ML IV ONE (21:16)
--- NOTE | 2018-11-15 21:22 | EDPHY ---
H & P Stated Complaint: dizzy, weak, near syncope, fatigue, fever-like. neg cecille stroke Time Seen by Provider: 11/15/18 20:51 HPI/ROS: CHIEF COMPLAINT: Fatigue, depression HISTORY OF PRESENT ILLNESS: 68-year-old female with Sjogren's disease and chronic fatigue syndrome presents with excessive fatigue and depression. Ongoing fatigue for several days. This is an intermittent problem and usually resolves spontaneously. However this episode is not resolving. Has difficulty getting out of bed because of fatigue and doing routine activities of daily living. Associated with increasing depression for the past 2 days. Depression related to current living situation. No suicidal or homicidal ideation. No recent illness, URI symptoms or fever. REVIEW OF SYSTEMS: complete 10 point ROS reviewed and is negative except for the noted elements in the HPI - Personal History Current Tetanus/Diphtheria Vaccine: No Current Tetanus Diphtheria and Acellular Pertussis (TDAP): No Tetanus Vaccine Date: < 10 YEARS - Medical/Surgical History Hx Asthma: No Hx Chronic Respiratory Disease: No Hx Diabetes: No Hx Cardiac Disease: No Hx Renal Disease: No Hx Cirrhosis: No Hx Alcoholism: No Hx HIV/AIDS: No Hx Splenectomy or Spleen Trauma: No Other PMH: APPY, TUBAL LIG, UTERINE CA, CHRONIC FATIGUE, PTSD, ANXIETY, SLEEP ISSUES,IBS,, hysterectomy, TIA, hypoglycemia - Social History Smoking Status: Former smoker - Physical Exam Exam: General Appearance: Alert, pleasant Eyes: Pupils equal and round, no conjunctival pallor ENT, Mouth: Mucous membranes moist Neck: Normal inspection Respiratory: Lungs are clear to auscultation Cardiovascular: Regular rate and rhythm, no murmur Gastrointestinal: Abdomen is soft and nontender Neurological: A&O, nonfocal, normal gait Skin: Warm and dry Extremities: Nontender, no pedal edema Psychiatric: Fluctuating affect, tearful at times Constitutional: Initial Vital Signs Temperature (C) 36.5 C 11/15/18 20:08 Heart Rate 72 11/15/18 20:08 Respiratory Rate 18 11/15/18 20:08 Blood Pressure 121/73 H 11/15/18 20:08 O2 Sat (%) 99 11/15/18 20:08 Allergies/Adverse Reactions: Penicillins Allergy (Severe, Verified 11/15/18 20:08) SWELLING epinephrine Allergy (Verified 11/15/18 20:08) latex Allergy (Verified 11/15/18 20:08) venom-honey bee [bee venom (honey bee)] Allergy (Verified 11/15/18 20:08) EPI Allergy (Unknown, Uncoded 11/15/18 20:08) Home Medications: Medication Instructions Recorded Acyclovir [Zovirax 400 mg (*)] 800 mg PO BID 09/25/17 Paroxetine HCl 10 mg PO TID 09/25/17 Paroxetine HCl 20 mg PO DAILY PRN 09/25/17 cycloSPORINE 0.05% [Restasis Opht 1 drop EACHEYE BID 09/25/17 Drops(*)] Medical Decision Making - Diagnostics EKG Interpretation: EKG interpreted by me reveals normal sinus rhythm, rate 66, borderline right axis deviation, no ST or T segment changes. Interpretation: Otherwise normal EKG ED Course/Re-evaluation: This patient presents with excessive fatigue. Physical exam is normal. No evidence of an acute problem tonight. She has ongoing chronic fatigue and depression, somewhat worsened recently. Long discussion with the patient. I will have the comp field case manager call the patient in the morning to help with resources for depression and living situation. No indication for admission this evening. Differential Diagnosis: Altered mental status including but not limited to hypoglycemia, infectious process, electrolyte abnormality, head injury, CVA, and intoxicants. - Data Points Laboratory Results: Laboratory Results 11/15/18 20:30 11/15/18 20:30 11/15/18 11/15/18 20:30 20:30 WBC 6.88 10^3/uL 10^3/uL (3.80-9.50) RBC 4.54 10^6/uL 10^6/uL (4.18-5.33) Hgb 13.9 g/dL g/dL (12.6-16.3) Hct 42.6 % % (38.0-47.0) MCV 93.8 fL fL (81.5-99.8) MCH 30.6 pg pg (27.9-34.1) MCHC 32.6 g/dL g/dL (32.4-36.7) RDW 12.9 % % (11.5-15.2) Plt Count 240 10^3/uL 10^3/uL (150-400) MPV 10.8 fL fL (8.7-11.7) Neut % (Auto) 59.9 % % (39.3-74.2) Lymph % (Auto) 27.6 % % (15.0-45.0) [place] % (Auto) 9.3 % % (4.5-13.0) Eos % (Auto) 1.9 % % (0.6-7.6) Baso % (Auto) 1.0 % % (0.3-1.7) Nucleat RBC Rel Count 0.0 % % (0.0-0.2) Absolute Neuts (auto) 4.12 10^3/uL 10^3/uL (1.70-6.50) Absolute Lymphs (auto) 1.90 10^3/uL 10^3/uL (1.00-3.00) Absolute Monos (auto) 0.64 10^3/uL 10^3/uL (0.30-0.80) Absolute Eos (auto) 0.13 10^3/uL 10^3/uL (0.03-0.40) Absolute Basos (auto) 0.07 10^3/uL 10^3/uL (0.02-0.10) Absolute Nucleated RBC 0.00 10^3/uL 10^3/uL (0-0.01) Immature Gran % 0.3 % % (0.0-1.1) Immature Gran # 0.02 10^3/uL 10^3/uL (0.00-0.10) Sodium 136 mEq/L mEq/L (135-145) Potassium 4.1 mEq/L mEq/L (3.5-5.2) Chloride 102 mEq/L mEq/L (97-110) Carbon Dioxide 22 mEq/l mEq/l (22-31) Anion Gap 12 mEq/L mEq/L (6-14) BUN 30 mg/dL H mg/dL (7-23) Creatinine 1.2 mg/dL H mg/dL (0.6-1.0) Estimated GFR 45 Glucose 96 mg/dL mg/dL (70-100) Calcium 9.3 mg/dL mg/dL (8.5-10.4) Medications Given: Discontinued Medications Sodium Chloride (Ns) 1,000 mls @ 0 mls/hr IV ONCE ONE; Wide Open PRN Reason: Protocol Stop: 11/15/18 21:17 Last Admin: 11/15/18 21:34 Dose: 1,000 mls Departure - Departure Disposition: Home, Routine, Self-Care Clinical Impression: Fatigue, Depression, Dehydration Condition: Fair Instructions: Depression (ED), Fatigue (ED), Dehydration (ED) Additional Instructions: Drink plenty of fluids. Our comp field case manager will call you tomorrow. Referrals: Cassandra Dobson MD [Primary Care Provider] - As per Instructions (Call to make an appointment.)
[2018-11-15 21:54] LABS: PLATELET COUNT 240 10^3/uL (150-400)
--- NOTE | 2018-11-17 07:55 | CPEKG ---
Test Reason : OPEN Blood Pressure : / mmHG Vent. Rate : 066 BPM Atrial Rate : 066 BPM P-R Int : 182 ms QRS Dur : 088 ms QT Int : 394 ms P-R-T Axes : 078 081 056 degrees QTc Int : 413 ms Sinus rhythm Borderline right axis deviation Confirmed by Sincere Sanon ([id number]) on 11/17/2018 7:55:08 AM Referred By: PHYSICIAN ED Confirmed By:Sincere Sanon
== END 2018-11-15 23:28 | disposition home or self-care (01) ==
DX: R53.83 Other fatigue (principal); F32.9 Major depressive disorder, single episode, unspecified; E86.0 Dehydration; F41.9 Anxiety disorder, unspecified; F43.10 Post-traumatic stress disorder, unspecified; Z85.42 Personal history of malignant neoplasm of other parts of uterus; Z87.891 Personal history of nicotine dependence; Z90.710 Acquired absence of both cervix and uterus

== ENCOUNTER → 2019-02-07 | Outpatient (CLI) | payer OTHER, MEDICAID | LOC: FIMAGING 15:52 ==